=== PATIENT | female | born 1960 | race Caucasian/White ===

== ENCOUNTER 2017-11-11 13:54 | Day surgery (SDC) | payer OTHER ==
[2017-11-11] MEDS ORDERED: BUPIVACAINE HCL 0.25% MPF 30 ML SOL INFIL ONE (14:24)
[2017-11-11] MEDS ORDERED: DEXAMETHASONE SOD PHOS PF 10 MG/ML SOL IJ ONE (14:24)
[2017-11-11 15:14] VITALS: BP 119/74; PULSE 63; RESP 16; TEMP 98.5; O2SAT 99
== END 2017-11-11 15:25 | disposition home or self-care (01) | DRG 552 ==
LOC: SURG 13:54
PROVIDERS: ATTEND Nurse Anesthetist, Certified Registered
DX: M54.16 Radiculopathy, lumbar region (principal)
CPT/HCPCS: J1100

== ENCOUNTER 2018-03-10 14:35 | Day surgery (SDC) | payer OTHER ==
[2018-03-10] MEDS ORDERED: BUPIVACAINE HCL 0.25% MPF 30 ML SOL INFIL ONE (15:04)
[2018-03-10] MEDS ORDERED: DEXAMETHASONE SOD PHOS PF 10 MG/ML SOL IJ ONE (15:04)
[2018-03-10 15:25] VITALS: O2SAT 99
[2018-03-10 15:35] VITALS: BP 139/77; PULSE 62; RESP 20; TEMP 98.3
== END 2018-03-10 15:50 | disposition home or self-care (01) | DRG 552 ==
LOC: SURG 14:35
PROVIDERS: ATTEND Nurse Anesthetist, Certified Registered
DX: M48.062 Spinal stenosis, lumbar region with neurogenic claudication (principal)
CPT/HCPCS: J1100

== ENCOUNTER 2018-06-11 11:43 | Emergency (ER) | payer OTHER ==
[2018-06-11 12:01] VITALS: TEMP 98.5; O2SAT 98
[2018-06-11] MEDS ORDERED: SODIUM CHLORIDE 0.9% 1000ML 1,000 ML IV ONE (12:13)
[2018-06-11 12:22] LABS: BASOPHILS % (AUTO) 1 % (0-3); EOSINOPHILS % (AUTO) 2 % (0-9); HEMATOCRIT 38 % (35-47); HEMOGLOBIN 12.6 gm/dl (12.0-15.5); LYMPHOCYTES % (AUTO) 21.3 % (10-50); MEAN CORPUSCULAR HEMOGLOBIN 29.3 pg (27.0-32.0); MEAN CORPUSCULAR HGB CONC 33.1 gm/dl (32.0-36.0); MEAN CORPUSCULAR VOLUME 89 fL (81-99); MONOCYTES % (AUTO) 5.4 % (0-12); NEUTROPHILS % (AUTO) 70.3 % (37-80)
[2018-06-11 12:36] LABS: APPEARANCE,URINE Clear; BILIRUBIN,URINE NEGATIVE (NEGATIVE); COLOR,URINE Yellow; GLUCOSE, URINE (UA) NEGATIVE (NEGATIVE); KETONES,URINE NEGATIVE (NEGATIVE); LEUKOCYTE ESTERASE ,URINE TRACE (NEGATIVE); NITRATE,URINE NEGATIVE (NEGATIVE); OCCULT BLOOD,URINE NEGATIVE (NEG-TRACE); UROBILINOGEN,URINE 0.2 (0.2-1.0 EU)
[2018-06-11 12:40] LABS: ALBUMIN 4.5 gm/dl (3.4-5.0); BILIRUBIN,TOTAL 0.9 mg/dl (0.2-1.0); CALCIUM 8.7 mg/dl (8.5-10.1); CARBON DIOXIDE 29.2 mEq/L (21-32); CREATININE 0.75 mg/dl (0.60-1.00); POTASSIUM 3.7 mMol/L (3.5-5.1); TOTAL PROTEIN 7.2 gm/dl (6.4-8.2)
[2018-06-11 12:50] LABS: BACTERIA NEGATIVE (< 1+); CRYSTALS NEGATIVE (0-3 AVE/HPF); RBC,URINE NEG (0-3AV/HPF); WBC,URINE 0-3 (0-5AV/HPF)
[2018-06-11 17:41] VITALS: RESP 25
[2018-06-11 17:42] VITALS: BP 124/75
[2018-06-11 17:43] VITALS: PULSE 64
== END 2018-06-11 14:11 | disposition home or self-care (01) | DRG 153 ==
LOC: ED 11:43
DX: J32.9 Chronic sinusitis, unspecified (principal); R41.0 Disorientation, unspecified; R40.2362 Coma scale, best motor response, obeys commands, at arrival to emergency department; R40.2142 Coma scale, eyes open, spontaneous, at arrival to emergency department; R40.2252 Coma scale, best verbal response, oriented, at arrival to emergency department
CPT/HCPCS: 36415; 70450; 80053; 81001; 85025; 87088; 96365; 99283; 99285